=== PATIENT | male | born 2000 | race Two or more races ===

== ENCOUNTER → 2019-08-22 | Emergency (ER) | payer OTHER | END | disposition left against medical advice (07) | LOC: ER 17:30 | DX: Z53.20 Procedure and treatment not carried out because of patient's decision for unspecified reasons (principal) ==

== ENCOUNTER 2019-08-30 17:53 | Emergency (ER) | payer OTHER ==
[~2019-08-30] VITALS: Ht 172.7 cm; Wt 54.4 kg
[2019-08-30] MEDS ORDERED: ZITHROMAX500 MG PO (20:54)
[2019-08-30] MEDS ORDERED: KETO10TA2 PO (20:54)
[2019-08-30] MEDS ORDERED: PEPCID AC20 MG PO (20:54)
== END 2019-08-30 21:57 | disposition home or self-care (01) ==
LOC: ER 17:53
DX: J35.01 Chronic tonsillitis (principal); E86.0 Dehydration

== ENCOUNTER 2019-12-18 11:10 | Emergency (ER) | payer OTHER ==
[~2019-12-18] VITALS: Ht 175.3 cm; Wt 56.7 kg
[~2019-12-18 11:10] MED LIST: KETO10TA2 PO; PEPCID AC20 MG PO; ZITHROMAX500 MG PO
== END 2019-12-18 13:32 | disposition home or self-care (01) ==
LOC: ER 11:10
DX: B33.8 Other specified viral diseases (principal); B96.0 Mycoplasma pneumoniae [M. pneumoniae] as the cause of diseases classified elsewhere